=== PATIENT | male | born 1980 | race Two or more races ===

== ENCOUNTER 2019-08-17 21:42 | Emergency (ER) | payer BC ==
[~2019-08-17] VITALS: Ht 177.8 cm; Wt 72.6 kg
[2019-08-17 21:50] VITALS: BP 178/93
--- NOTE | 2019-08-17 21:50 | NUR ---
Pt walked into ED from gym for c/o chest pain onset at 2100 today. Pt states he was doing lunges at the gym when he had a sudden onset of chest pain. he states pain is pressure/crushing like in nature in the center of chest. Pt is aaox4, breating is normal and unlabored, ambulatory with steady gait. Pt is tachy at 120 on the monitor. Pt denies taking any preworkout prior to working out. He states pain is nonradiating, does report nausea, SOB. Pt placed on library monitor and into gown. Will continue to monitor.
--- NOTE | 2019-08-17 22:08 | Emergency Room Report ---
History of Present Illness General Chief Complaint: Chest Pain Source: Patient Present Illness HPI This is a 39-year-old male with no past medical history. He presents with complaint of chest pain. He was working out when this occurred. He was doing aerobic exercise with running for 15 minutes. Afterward he did work and then he start doing lunges. About an hour ago when he was doing lunges he developed with sharp squeezing chest pain. No radiation. He felt short of breath. No diaphoresis. He felt numbness to his fingers. He also said when he works out his heart rate can go above 200 for short period of time. He felt a bit better now. No nausea no vomiting. No fever or chills. He denies any drug use or supplements. Pain was 8 out of 10. Sharp in nature. Allergies: Coded Allergies: No Known Allergies (Unverified , 08/17/19) Patient History Past Medical History: see triage record, old chart reviewed Past Surgical History: other Pertinent Family History: none Social History: Denies: smoking Immunizations: other Reviewed Nursing Documentation: PMH: Agreed; PSxH: Agreed Nursing Documentation-PMH Past Medical History: No Stated History Review of Systems Eye: Denies: eye pain, blurred vision ENT: Denies: ear pain, nose congestion, throat swelling Respiratory: Denies: cough, shortness of breath Cardiovascular: Reports: chest pain; Denies: palpitations Gastrointestinal: Denies: abdominal pain, diarrhea, nausea, vomiting Musculoskeletal: Denies: back pain, joint pain Skin: Denies: rash Neurological: Denies: headache, numbness Endocrine: Denies: increased thirst, increased urine Hematologic/Lymphatic: Denies: easy bruising All Other Systems: negative except mentioned in HPI Physical Exam Vital Signs Date Time Temp Pulse Resp B/P (MAP) Pulse Ox O2 Delivery O2 Flow Rate FiO2 08/17/19 21:44 99.9 123 16 178/93 (121) 98 Room Air Vitals with high blood pressure and tachycardia. Sp02 EP Interpretation: reviewed, normal General Appearance: well appearing, no apparent distress, alert Head: normocephalic, atraumatic Eyes: bilateral eye PERRL, bilateral eye EOMI ENT: hearing grossly normal, normal pharynx Neck: full range of motion, supple, no meningismus Respiratory: chest non-tender, lungs clear, normal breath sounds Cardiovascular #1: regular rate, rhythm, no murmur Gastrointestinal: normal bowel sounds, non tender, no mass, no organomegaly, no bruit, non-distended Musculoskeletal: back normal, normal range of motion, gait/station normal Psychiatric: mood/affect normal Medical Decision Making Diagnostic Impression: Primary Impression: Chest pain Qualified Codes: R07.9 - Chest pain, unspecified ER Course Patient presents with chest pain. No evidence of ACS, PE, dissection. His tachycardia resolved with IV fluids here and rest. He may have an anxiety component because of the pain. May have muscle spasm. Concerning that he complaining of fast heart rate when he exercise. Told him no strenuous activity until he sees a agricultural services director for echocardiogram. No history of sudden in the family. EKG Diagnostic Results Rate: tachycardiac Rhythm: NSR ST Segments: no acute changes ASA given to the pt in ED: Yes Rhythm Strip Diag. Results EP Interpretation: yes Rate: 110 Rhythm: NSR, no PVC's, no ectopy Chest X-Ray Diagnostic Results Chest X-Ray Diagnostic Results : Chest X-Ray Ordered: Yes # of Views/Limited/Complete: 1 View Indication: Chest Pain EP Interpretation: Yes Interpretation: no consolidation, no effusion, no pneumothorax, no acute cardiopulmonary disease Impression: No acute disease Electronically Signed by: Juan Carlos Betancourt MD Last Vital Signs Date Time Temp Pulse Resp B/P (MAP) Pulse Ox O2 Delivery O2 Flow Rate FiO2 08/17/19 21:44 99.9 123 16 178/93 (121) 98 Room Air Status: improved Disposition: HOME, SELF-CARE Condition: Stable Scripts No Active Prescriptions or Reported Meds Patient Instructions: Nonspecific Chest Pain Additional Instructions: Follow-up your doctor in 7 days. You will need a referral to see a agricultural services director for echocardiogram. No strenuous activity until you get clearance from a agricultural services director. Return if worse. Juan Carlos Betancourt MD Aug 17, 2019 22:08
[2019-08-17] MEDS ORDERED: Aspirin Baby 81mg ORAL ONE (22:15)
[2019-08-17 22:18] LABS: BASOPHILS % (AUTO) 1.1 % (0.0-2.0); EOSINOPHILS % (AUTO) 0.9 % (0.0-3.0); HEMATOCRIT 44.3 % (42.0-52.0); HEMOGLOBIN 15.8 G/DL (14.2-18.0); LYMPHOCYTES % (AUTO) 28.6 % (20.0-45.0); MEAN CORPUSCULAR VOLUME 86 FL (80-99); MONOCYTES % (AUTO) 7.5 % (1.0-10.0); NEUTROPHILS % (AUTO) 61.9 % (45.0-75.0); PLATELET COUNT 316 K/UL (150-450); RED BLOOD COUNT 5.16 M/UL (4.70-6.10); RED CELL DISTRIBUTION WIDTH 10.4 % (11.6-14.8); WHITE BLOOD COUNT 11.1 K/UL (4.8-10.8)
[2019-08-17 22:33] LABS: ANION GAP 13 mmol/L (5-15); BLOOD UREA NITROGEN 12 mg/dL (7-18); CALCIUM 8.4 MG/DL (8.5-10.1); CARBON DIOXIDE 26 MMOL/L (21-32); CHLORIDE 103 MMOL/L (98-107); CREATININE 1.3 MG/DL (0.55-1.30); POTASSIUM 3.1 MMOL/L (3.5-5.1); SODIUM 141 MMOL/L (136-145)
[2019-08-17 22:46] LABS: ALANINE AMINOTRANSFERASE 26 U/L (12-78); ALBUMIN 4.2 G/DL (3.4-5.0); ALBUMIN/GLOBULIN RATIO 1.4 (1.0-2.7); ALKALINE PHOSPHATASE 65 U/L (46-116); ASPARTATE AMINO TRANSFERASE 15 U/L (15-37); BILIRUBIN,TOTAL 1.2 MG/DL (0.2-1.0); CKMB 0.6 NG/ML (0.0-3.6); CREATINE KINASE 90 U/L (26-308)
[2019-08-17 22:48] LABS: BILIRUBIN,DIRECT 0.2 MG/DL (0.0-0.3)
[2019-08-17 23:15] LABS: APPEARANCE,URINE CLEAR; BILIRUBIN, URINE NEGATIVE (NEGATIVE); COLOR,URINE PALE YELLOW; GLUCOSE, URINE (UA) NEGATIVE (NEGATIVE); KETONES,URINE NEGATIVE (NEGATIVE); LEUKOCYTE ESTERASE ,URINE NEGATIVE (NEGATIVE); NITRITE,URINE NEGATIVE (NEGATIVE); PH,URINE 6.5 (4.5-8.0); PROTEIN,URINE NEGATIVE (NEGATIVE); UROBILINOGEN,URINE NORMAL MG/DL (0.0-1.0)
[2019-08-17 23:30] VITALS: BP 127/66
--- NOTE | 2019-08-17 23:30 | NUR ---
ER DISCHARGE NOTE: Patient is cleared to be discharged per ERMD, pt is aox4, on room air, with stable vital signs. pt was given dc and prescription instructions, pt was able to verbalize understanding, pt id band and iv site removed without complications. pt is able to ambulate with steady gait. pt took all belongings.
--- NOTE | 2019-08-18 11:29 | Diagnostic Imaging Report ---
Indication: Chest pain Technique: One view of the chest Comparison: none Findings: Lungs and pleural spaces are clear. Heart size is normal. Impression: No acute process
== END 2019-08-17 23:30 | disposition home or self-care (01) ==
LOC: EMR 22:30
DX: R07.9 Chest pain, unspecified (principal); R00.0 Tachycardia, unspecified
CPT/HCPCS: 36415; 71045; 80053; 80307; 81003; 82248; 82550; 82553; 84484; 85025; 93005; 96360; 99284; J7030